=== PATIENT | male | born 1990 | race American Indian/Alaskan Native ===

== ENCOUNTER 2018-04-13 18:57 | Emergency (ER) | payer OTHER ==
[2018-04-13] MEDS ORDERED: levETIRAcetam 500 MG Tab PO ONE (19:17)
--- NOTE | 2018-04-13 19:21 | EDM.PDOC ---
ED HPI GENERAL MEDICAL PROBLEM - General Chief Complaint: Neuro Symptoms/Deficits Stated Complaint: SEIZURES Time Seen by Provider: 04/13/18 19:18 Source of Information: Reports: Patient History Limitations: Reports: No Limitations - History of Present Illness INITIAL COMMENTS - FREE TEXT/NARRATIVE: Mike complains of having a seizure while in skilled nursing today. He was showering when he felt it coming on. He describes a shaking everywhere, biting his cheek and possibly urinating on himself. He is known to have a history of seizures, but has not taken Dilantin for 2 weeks. He thinks that the seizures are usually brought on by alcohol either intoxication or withdrawal. Stress seems to make them worse. In fact ,today; he was arguing with his when he felt a seizure coming. He did not hit his head and as far as he knows,no vomiting fever or chills. ED ROS GENERAL - Review of Systems Review Of Systems: ROS reveals no pertinent complaints other than HPI. - Physical Exam Exam: See Below Exam Limited By: No Limitations General Appearance: Alert, WD/WN, No Apparent Distress Ears: Normal External Exam, Normal Canal, Hearing Grossly Normal, Normal TMs Nose: Normal Inspection, Normal Mucosa, No Blood Throat/Mouth: Normal Inspection Head Exam: Atraumatic Respiratory/Chest: No Respiratory Distress, Rhonchi Neuro Exam (Abbreviated): Alert, Oriented, CN II-XII Intact Course - Vital Signs Last Recorded V/S: Last Vital Signs Temp 97.7 F 04/13/18 19:11 Pulse 90 04/13/18 19:11 Resp 17 04/13/18 19:11 BP 145/77 H 04/13/18 19:11 Pulse Ox 98 04/13/18 19:11 - Orders/Labs/Meds Orders: Active Orders 24 hr Category Date Time Status levETIRAcetam [Keppra] Med 04/13/18 19:17 Once 500 mg PO ONETIME ONE Medication Orders Levetiracetam (Keppra) 500 mg PO ONETIME ONE Stop: 04/13/18 19:18 Meds: Medications Generic Name Dose Route Start Last Admin Trade Name Freq PRN Reason Stop Dose Admin Levetiracetam 500 mg 04/13/18 19:17 Keppra PO 04/13/18 19:18 ONETIME ONE Departure - Departure Time of Disposition: 19:20 Disposition: Home, Self-Care 01 Clinical Impression: Seizure - Discharge Information Instructions: Seizure, Adult Referrals: PCP,None [Primary Care Provider] - (Follow up this week) Forms: ED Department Discharge - Problem List & Annotations (1) Seizure SNOMED Code(s): 64426007 Code(s): R56.9 - UNSPECIFIED CONVULSIONS Status: Acute - Problem List Review Problem List Initiated/Reviewed/Updated: Yes - My Orders Last 24 Hours: My Active Orders 04/13/18 19:17 levETIRAcetam [Keppra] 500 mg PO ONETIME ONE - Assessment/Plan Last 24 Hours: My Active Orders 04/13/18 19:17 levETIRAcetam [Keppra] 500 mg PO ONETIME ONE Plan: I gave him one dose Keppra 500 mg ,and will start him on BID. See PCP this week, as soon as tomorrow
== END 2018-04-13 19:40 | disposition home or self-care (01) ==
LOC: FB.ED 18:57
DX: R56.9 Unspecified convulsions (principal)
CPT/HCPCS: 99283; A9270